=== PATIENT | female | born 1990 | race Caucasian/White ===

== ENCOUNTER 2018-01-28 12:05 | Emergency (ER) | payer OTHER, SELFPAY ==
[2018-01-28 12:10] VITALS: BP 144/99; PULSE 84; RESP 18; TEMP 36.8; O2SAT 100; BMI 21.9
[2018-01-28 12:47] LABS: Basophils % 0.2 % (0.1-2.0); Eosinophils % 0.3 % (0.1-12.0); Hematocrit 42.7 % (37.0-47.0); Hemoglobin 13.7 g/dL (12.2-16.2); Lymphocytes # 1.4 K/mm3 (0.7-4.5); Lymphocytes % 13.5 K/mm3 (10-50); Mean Corpuscular HGB Conc 32.1 g/dL (31.8-35.4); Mean Corpuscular Hemoglobin 27.6 pg (27.0-31.2); Mean Corpuscular Volume 85.9 fl (81-99); Mean Platelet Volume 9.1 fl (7.4-10.4); Monocytes # 0.3 K/mm3 (0.1-1.0); Neutrophils # 8.3 K/mm3 (1.8-7.8); Platelet Count 225 K/mm3 (142-424); Red Blood Count 4.97 M/mm3 (4.20-5.40); Red Cell Distribution Width 15.6 % (11.5-17.5)
[2018-01-28 12:49] LABS: Anion Gap 12.9 mEq/L (5-15); Blood Urea Nitrogen 13 mg/dL (7-18); Carbon Dioxide 28 mmol/L (21.0-32.0); Chloride 105 mmol/L (98-107); Creatinine Clearance Estimated 97 mL/min (0-300); Creatinine,Serum 0.86 mg/dL (0.55-1.02); Estimated Glomerular Filt Rate 78 ml/min (>60); GFR (African American) 94 ML/MIN (>60); Glucose 100 mg/dL (74-106); Potassium 3.9 mmoL/L (3.5-5.1); Sodium 142 mmol/L (136-145)
--- NOTE | 2018-01-28 13:18 | HMH.EDGENADL ---
ED Disposition Clinical Impression: Right ureteral calculus Disposition: Home, Self-Care Condition on Discharge: Good Instructions: DI for Kidney Stones Additional Instructions: Go to Dr. Patel office right now at the other end of the hospital, above clinic pharmacy. Prescriptions: Ketorolac Tromethamine [Toradol 10mg tablet] 10 mg PO Q8HP PRN 5 Days #12 tab PRN Reason: Moderate To Severe Pain Ondansetron [Zofran 4mg ODT] 4 mg PO TIDP PRN #10 tab.rapdis PRN Reason: Nausea And Vomiting - Critical Care Critical Care Time: No Attestation: On 01/28/18, the high probability of a clinically significant, sudden or life threatening deterioration of the following system(s) required my full and direct attention, intervention and personal management. The time I documented below is in addition to time spent performing reported procedures but includes the following listed in this critical care notation. Medical Decision Making - Leo Inquiry Pt receiving controlled substance: No Vital Signs: 01/28/18 12:10 01/28/18 13:49 Temperature 98.3 F 98.6 F Temperature Source Oral Oral Pulse Rate 77 Pulse Rate [Right Radial] 84 Respiratory Rate 18 16 Blood Pressure 145/90 Blood Pressure [Right Arm] 144/99 Blood Pressure Mean [Right Arm] 114 Blood Pressure Source Automatic Cuff Blood Pressure Source [Right Arm] Automatic Cuff Blood Pressure Position Sitting Blood Pressure Position [Right Arm] Supine 02 Sat by Pulse Oximetry 100 Oxygen Delivery Method Room Air Room Air - Lab Data Lab Results 01/28/18 12:30: WBC 10.0, RBC 4.97, Hgb 13.7, Hct 42.7, MCV 85.9, MCH 27.6, MCHC 32.1, RDW 15.6, Plt Count 225, MPV 9.1, Neut % (Auto) 83.0 H, Lymph % (Auto) 13.5, [place] % (Auto) 3.0, Eos % (Auto) 0.3, Baso % (Auto) 0.2, Neut # (Auto) 8.3 H, Lymph # (Auto) 1.4, [place] # (Auto) 0.3, Eos # (Auto) 0.0, Baso # (Auto) 0.0 01/28/18 12:30: Sodium 142, Potassium 3.9, Chloride 105, Carbon Dioxide 28, Anion Gap 12.9, BUN 13, Creatinine 0.86, Estimated Creat Clear 97, Estimated GFR 78, Est GFR ( Amer) 94, Glucose 100 01/28/18 13:20: Urine Color Yellow, Urine Appearance Clear, Urine pH 8.5, Ur Specific [place] 1.015, Urine Protein Negative, Urine Glucose (UA) Negative, Urine Ketones Negative, Urine Blood Trace-i, Urine Nitrate Negative, Urine Bilirubin Negative, Urine Urobilinogen 0.2, Ur Leukocyte Esterase Negative, Urine RBC Occasional, Urine WBC Occasional, Ur Squamous Epith Cells Tntc, Urine Bacteria 4+ Result diagrams: 01/28/18 12:30 01/28/18 12:30 Orders (Tests/Meds): ED MEDICATIONS Discontinued Medications Generic Name Dose Route Start Last Admin Trade Name Freq PRN Reason Stop Dose Admin Ketorolac Tromethamine 30 mg 01/28/18 13:25 Toradol 30mg/Ml Vial IV 01/28/18 13:26 ONCE ONE Ondansetron HCl 4 mg 01/28/18 13:28 01/28/18 13:37 Zofran 4mg/2ml Vial IV 01/28/18 13:29 4 mg ONCE ONE Administration ORDERS Category Date Time Status Urine Culture Stat Micro 01/28/18 13:20 Received Medical Decision Narrative: Records obtained from [facility] emergency department. The patient has a 4 mm right UVJ stone with moderate hydroureteronephrosis and a left nephrolithiasis. 1:45 PM: Discussed with Dr. Patel. He will see the patient in his office now and arrange surgical intervention. General Adult HPI - General Chief complaint: PAIN Stated complaint: kidney stone pain Time Seen by Provider: 01/28/18 13:19 Mode of Arrival: Wheelchair Limitations: No Limitations Description of Symptoms (Recalled from ER Triage Doc. by RN): Right flank pain - History of Present Illness HPI narrative: The patient is a 5 day history of right flank pain going into the right suprapubic area with vomiting. Seen at [facility] emergency department 4 days ago and had a CT scan, diagnosed with 4 mm right UVJ stone. She was given Toradol in the emergency room which she says helped we
[2018-01-28 13:24] LABS: Microscopic, Urine URINE MICROSCOPIC (MICROSCOPIC)
[2018-01-28 13:28] LABS: Appearance,Urine CLEAR (Clear); Bilirubin,Urine Negative (Negative); Blood, Urine TRACE-I (Negative); Color,Urine YELLOW (Yellow); Glucose,Urine (UA) Negative (Negative); Ketones,Urine Negative (Negative); Leukocyte Esterase,Urine Negative (Negative); Nitrate,Urine Negative (Negative); PH,Urine 8.5 (5.0-8.5); Protein,Urine Negative (Negative); Specific Gravity, Urine 1.015 (1.005-1.030); Urobilinogen,Urine 0.2 EU/dl (0.2)
[2018-01-28 13:48] LABS: Bacteria,Urine 4+ /lpf; RBC,Urine Occasional #/hpf (0-3); Squamous Epithelial Cell,Urine TNTC #/hpf (0-5); WBC,Urine Occasional #/hpf (0-3)
[2018-01-28 13:49] VITALS: BP 145/90; PULSE 77; RESP 16; TEMP 37; O2SAT 98
== END 2018-01-28 14:33 | disposition home or self-care (01) ==
PROVIDERS: Emergency Provider Emergency Medicine; Family Provider Internal Medicine
DX: N20.1 Calculus of ureter (principal); F17.210 Nicotine dependence, cigarettes, uncomplicated
CPT/HCPCS: 80048; 81001; 85025; 87086; 96374; 99281; J2405

== ENCOUNTER → 2018-01-28 15:35 | Day surgery (SDC) | payer OTHER, SELFPAY ==
[2018-01-28] VITALS (12 sets, daily range): BP systolic 114–126; BP diastolic 73–88; PULSE 79–105; RESP 12–23; TEMP 36.7–43; O2SAT 95–98; BMI 21.9
--- NOTE | 2018-01-28 16:11 | HMH.ANESCL ---
[facility] Anesthesia Checklist - Structural Data Admitted From: Home Planned Operative Procedure/s: ureteroscopy Consent for Planned Operative Procedure(s) Verified: Yes Verified Documents: Surgical Consent - Airway Assessment C-Spine Mobility Assessed: Yes TMJ Mobility Assessed: Yes Dentition: Good Dentition - Neurological Assessment Level of Consciousness: Awake, Alert - Anesthesia Plan Anesthesia Risk discussed: Yes Anesthesia Plan: Verified ASA Class: II Anesthesia Type: General [facility] Anesthesia HX I have reviewed the patient's past medical history: Yes Medical History: Denies:: Cancer, Diabetes Mellitus Type 1, Diabetes Mellitus Type 2, MRSA Amputation: No Fractures: No
[2018-01-28 16:21] LABS: Urine Pregnancy, HCG Qual. Negative (Negative)
--- NOTE | 2018-01-28 17:34 | HMH.ANESI ---
[facility] Anesthesia Record Part I Intake, IV Amount: 800 Estimated blood loss (mL): 0 Urine output (mL): 0 Blood Pressure: 115/76 SaO2: 97 Pulse Rate: 88 Respiratory Rate: 12 Temperature: 98.1 F Patient is:: Awake, Stable Stable to PACU at:: 17:30
--- NOTE | 2018-01-28 17:35 | P.PN_ITS ---
[facility] Anesthesia Record Part II Discharge Time: 18:00 Destination: [facility] PACU nurse assessment reviewed?: Yes Patient Condition:: Good Anesthesia Complications:: None
--- NOTE | 2018-01-28 17:35 | HMH.ANESII ---
[facility] Anesthesia Record Part II Discharge Time: 18:00 [address]ination: [facility] PACU nurse assessment reviewed?: Yes Patient Condition:: Good Anesthesia Complications:: None
--- NOTE | 2018-01-28 18:47 | HMH.OPNOTE ---
Date of procedure: 01/28/18 Pre-op Diagnosis:: Right distal ureteral calculus Post-op Diagnosis:: Right distal ureteral calculus Procedure performed:: Cystoscopy with right distal ureteral balloon dilation right ureteroscopy and basket extraction of stone, right ureteral stent placement string attached Surgeon:: Gavino Patel MD RAIL PROJECT ENGINEER:: Lloyd Kinney Anesthesia: GETA Estimated blood loss (mL): 0 Clinical Note:: Patient with 5 days history right flank pain nausea and emesis secondary to 4 mm stone right ureterovesical junction. Patient was seen earlier this afternoon in the clinic. Due to severity of her symptoms she request resolution with ureteroscopic stone extraction Operative findings:: Right distal ureteral calculus moderate distal ureteral edema Operative note:: After satisfactory general anesthesia she was carefully placed in the dorsolithotomy position. Fluoroscopy revealed calcification in her right distal pelvis. The genital area was prepped and draped in standard fashion. The 22 Hungarian cystoscope sheath was introduced. The trans-mural ureter looked mildly edematous. 0.035 zip wire was advanced up the right ureter beyond the stone to the level of the kidney. The ureteral orifice looked amenable to primary ureteroscopy. The cystoscope was withdrawn and the wire secured to the drape. The semirigid ureteroscope was introduced. The ureterovesical junction however there was a narrowed area did not easily accommodate the scope and it was elected to dilate this. A 15 Hungarian 4 cm length balloon dilating system was passed over the wire and station in the transmural ureter. It was inflated to 12 mine with excellent dilation. The balloon was deflated and removed. Ureteroscope was then placed bladder and easily advanced up the stone where it was engaged in a 4 wire 0 tip nitinol basket and extracted without difficulty. Additional stones were noted. There is no ureteral perforation or significant trauma although moderate edema. The stent was placed over the wire and a 1.8 x 26 cm double-J ureteral stent was placed. There was a good coil in the kidney and coil in the bladder. String was left attached exiting the urethra. Xylocaine jelly was instilled in the urethra. String was secured to the pubic area with Tegaderm. She was awakened and extubated and transferred to the postop recovery room in stable condition Condition: stable Disposition: PACU Specimens:: Stone Complications:: None. She is placed on Bactrim double strength twice daily for 10 days. She will remove her stent in 72 hours and she will follow-up with me in 3 weeks
[2018-02-07 16:23] LABS: Ca oxalate dihydrate 45 % (.); Calcium phosphate 30 % (.); Size 4x3x2 mm (.)
[2018-02-08 18:36] LABS: Specimen Type Comment: (.)
== END ==
PROVIDERS: Family Provider Internal Medicine; Visit Provider Urology
PROC: (CPT 52352; principal; 2018-01-28 16:00)
DX: N20.1 Calculus of ureter (principal)
CPT/HCPCS: 52344; 52352; 52332; 74450; 76000; 81025; 82370; 96374; C1769; C2617; J2405; Q9967

== ENCOUNTER 2021-04-18 16:00 | Outpatient (RCR) | payer MEDICAID, SELFPAY | END 2021-05-17 15:30 | disposition home or self-care (01) | LOC: PT.CARL 16:00 | PROVIDERS: Visit Provider Nurse Practitioner Family | DX: M54.5 Low back pain (principal) | CPT/HCPCS: 97014; 97110; 97140; 97163; G0283 ==

== ENCOUNTER 2022-12-13 08:09 | Emergency (ER) | payer MEDICAID, SELFPAY ==
[2022-12-13 08:15] VITALS: BP 144/98; PULSE 86; RESP 20; TEMP 36.8; O2SAT 97; BMI 25.0
--- NOTE | 2022-12-13 08:19 | CT_ITS ---
FINAL REPORT TECHNIQUE: Axial CT images of the abdomen and pelvis were obtained without intravenous contrast. Coronal reformatted images were also obtained.This study was performed with techniques to keep radiation doses as low as reasonably achievable (ALARA). Individualized dose reduction techniques using automated exposure control or adjustment of mA and/or kV according to the patient's size were employed. CLINICAL HISTORY: r/o kidney stone. L flank pain COMPARISON: None FINDINGS: Abdomen: The lung bases are clear. There are several less than 3 mm nonobstructing bilateral renal stones. There is no right hydronephrosis or hydroureter. There is mild left hydronephrosis and hydroureter. Gallbladder is present. The liver, spleen and pancreas have an unremarkable, unenhanced appearance. No mass or adenopathy is seen. No inflammatory process is identified. Pelvis: The appendix is normal. There are multiple phleboliths noted in the pelvis. Of the distal left ureter is suboptimally visualized. There is a probable 5 mm stone in the distal left ureter near the UPJ. The uterus has a mildly lobulated contour which may represent uterine fibroid. IMPRESSION: Small nonobstructing renal stones. Mild left hydronephrosis and hydroureter with probable 5 mm left UPJ stone. Reviewed, Interpreted and Dictated by Troy Lake III, MD Transcribed by Jayne Vora Authenticated and [facility]
--- NOTE | 2022-12-13 08:20 | PC.NURSE ---
DR. OSEGUERA AT BEDSIDE
--- NOTE | 2022-12-13 08:21 | HMH.EDGENADL ---
Discharge Plan Disposition Patient Disposition: Home, Self-Care Condition: Good Prescriptions Prescriptions: New tamsulosin [Flomax] 0.4 mg capsule 0.4 mg PO HS Qty: 10 0RF ketorolac 10 mg tablet 10 mg PO Q8H PRN (Reason: pain) Qty: 10 0RF ondansetron 4 mg tablet,disintegrating 4 mg PO Q8H PRN (Reason: nausea and vomiting) Qty: 10 0RF Referrals Follow up/Referrals: Provider,Referral, MD [Primary Care Provider] - See instructions Activity Restrictions/Add. Instructions Additional Instructions/Restrictions: Flomax as prescribed. Toradol as needed for pain. Zofran as needed for nausea. Additional instructions for KIDNEY STONE (URETERAL CALCULUS): Call a urologist as soon as possible for further evaluation and care. Drink plenty of fluids. Strain your urine and save any stones you catch. Return immediately if you develop a fever or have uncontrollable vomiting or uncontrollable pain. Follow up with a urologist, call for appointment: [facility] (Dr. Ackerman) [address] [place] [address] Jonh Morley [facility] [address] [id number] Clinical Impressions Clinical Impression: Left ureteral calculus, Nephrolithiasis Instructions Patient Instructions: DI for Kidney Stones Discharge ED Provider: Kit Mathis General Adult HPI General Chief complaint: Urogenital-Female Stated complaint: Possible kidney stone vomitting lower back pain Time Seen by Provider: 12/13/22 08:16 Mode of Arrival: Ambulatory Source of Information: Patient Limitations: No Limitations Description of Symptoms (Recalled from ER Triage Doc. by RN): pt to ed c/o left flank pain, n/v and urinary urgency that started last night. pt reports a hx of kidney stones. pt reports the pain is sharp in nature and is constant. History of Present Illness HPI narrative: States she believes she has a kidney stone. Onset of left flank pain with vomiting and urinary frequency this morning. Small amounts of hematuria. No fever. Pain goes into her left lower quadrant. Reports that she has had multiple kidney stones in the past, last episode 2 years ago. Previously has seen Dr. Ackerman. She has had to have cystoscopy for stone in the past. She has never had lithotripsy. Related Data Previous Rx's Medication Instructions Recorded ketorolac 10 mg tablet 10 mg PO Q8H PRN pain #10 tabs 12/13/22 ondansetron 4 mg disintegrating 4 mg PO Q8H PRN nausea and 12/13/22 tablet vomiting #10 tabs tamsulosin 0.4 mg capsule (Flomax) 0.4 mg PO HS #10 caps 12/13/22 Allergies Allergy/AdvReac Type Severity Reaction Status Date / Time No Known Allergies Allergy Verified 12/13/22 08:18 [facility] Disclaimer: The information contained in this section may have been updated after the patient was seen, as this information can be updated by other users. Social History Smoking Status: Current every day smoker ROS Obtained: Yes Systems reviewed as appropriate & no additional complaints except as documented Constitutional Constitutional: Denies fever(s), Denies headache(s) and Denies weakness ENT Ears, Nose, Mouth, and Throat: Denies headache(s), Denies nasal discharge and Denies sore throat Cardiovascular Cardiovascular: Denies chest pain Respiratory Respiratory: Denies shortness of breath and Denies cough Gastrointestinal Gastrointestingal: Reports abdominal pain, nausea and vomiting; Denies constipation or diarrhea Genitourinary Female Genitourinary: Denies difficulty voiding, Denies dysuria, Reports flank pain, Reports hematuria, Reports urinary frequency and Reports urinary urgency Musculoskeletal Musculoskeletal: Denies numbness Neurologic Neurologic: Denies headache(s), Denies numbness and Denies weakness Physical Exam General General appearance: alert and in no apparent distress Head Head exam: atraumatic a
[2022-12-13 08:25] LABS: Microscopic, Urine URINE MICROSCOPIC (MICROSCOPIC)
[2022-12-13 08:33] VITALS: PULSE 87; O2SAT 99
[2022-12-13 08:43] LABS: Alanine Aminotransferase 17 U/L (12-78); Albumin Level 4.7 g/dl (3.5-5.0); Albumin/Globulin Ratio 1.6 (1.1-1.8); Alkaline Phosphatase 79 U/L (38-126); Anion Gap 10.5 mEq/L (5-15); Aspartate Amino Transferase 24 U/L (14-36); Bilirubin,Total 0.2 mg/dl (0.2-1.3); Blood Urea Nitrogen 11 mg/dl (7-17); Calcium 9.1 mg/dl (8.4-10.2); Carbon Dioxide 27 mmol/L (22.0-30.0); Chloride 108 mmol/L (98-107); Creatinine Clearance Estimated 130 mL/min (50-200); Estimated Glomerular Filt Rate 96 ml/min (>60); GFR (African American) 116 ML/MIN (>60); Globulin 2.9 g/dL (1.3-3.2); Glucose 137 mg/dl (74-100); Potassium 4.5 mmoL/L (3.5-5.1); Sodium 141 mmol/L (136-145); Total Protein,Serum 7.6 g/dl (6.3-8.2); Urine Pregnancy, HCG Qual. Negative (Negative)
[2022-12-13 08:43] LABS: Lipase 59 U/L (23-300)
--- NOTE | 2022-12-13 08:49 | PC.NURSE ---
pt to ct at this time
[2022-12-13 08:53] LABS: Appearance,Urine CLEAR (Clear); Basophils # 0.1 K/mm3 (0-0.2); Basophils % 1.3 % (0.1-2.0); Blood, Urine 3+ (Negative); Color,Urine YELLOW (Yellow); Eosinophils # 0.2 K/mm3 (0.0-0.4); Eosinophils % 1.9 % (0.1-12.0); Glucose,Urine (UA) Negative (Negative); Hematocrit 44.8 % (37.0-47.0); Hemoglobin 14.7 g/dL (12.2-16.2); Ketones,Urine Negative (Negative); Leukocyte Esterase,Urine TRACE (Negative); Lymphocytes # 1.6 K/mm3 (0.7-4.5); Lymphocytes % 15.5 % (10-50); Mean Corpuscular HGB Conc 32.7 g/dL (31.8-35.4); Mean Corpuscular Hemoglobin 29.4 pg (27.0-31.2); Mean Corpuscular Volume 89.9 fl (81-99); Mean Platelet Volume 9.3 fl (7.4-10.4); Monocytes # 0.4 K/mm3 (0.1-1.0); Monocytes % 3.6 % (1.7-9.3); Neutrophils % 77.7 % (37.0-80.0); Nitrate,Urine Negative (Negative); PH,Urine 6.5 (5.0-8.5); Platelet Count 234 K/mm3 (142-424); Protein,Urine 1+ (Negative); Red Blood Count 4.98 M/mm3 (4.20-5.40); Red Cell Distribution Width 14.3 % (11.5-17.5); Specific Gravity, Urine 1.025 (1.005-1.030); Urobilinogen,Urine 0.2 EU/dl (0.2); White Blood Count 10.3 K/mm3 (4.8-10.8)
[2022-12-13 08:54] LABS: Bilirubin,Urine 1+ (Negative)
[2022-12-13 09:01] VITALS: BP 120/93; PULSE 94; O2SAT 98
--- NOTE | 2022-12-13 09:25 | PC.NURSE ---
DR OSEGUERA AT BEDSIDE TO UPDATE PT
[2022-12-13 10:00] VITALS: BP 106/75; PULSE 85; O2SAT 97
--- NOTE | 2022-12-13 10:15 | PC.NURSE ---
preliminary report given to
[2022-12-13 12:19] VITALS: BP 115/74; PULSE 82; RESP 20; TEMP 36.8; O2SAT 97
== END 2022-12-13 11:17 | disposition home or self-care (01) ==
PROVIDERS: Emergency Provider Emergency Medicine
DX: N20.2 Calculus of kidney with calculus of ureter (principal); F17.210 Nicotine dependence, cigarettes, uncomplicated
CPT/HCPCS: 74176; 80053; 81001; 81025; 83690; 85025; 96361; 96374; 96375; 99285; J2405

== ENCOUNTER 2024-05-18 15:10 | Outpatient (CLI) | payer MEDICAID, SELFPAY ==
[2024-05-18 15:48] LABS: Basophils % 0.4 % (0.1-2.0); Eosinophils # 0.1 K/mm3 (0.0-0.4); Eosinophils % 0.8 % (0.1-12.0); Hematocrit 38.9 % (37.0-47.0); Lymphocytes # 1.9 K/mm3 (0.7-4.5); Lymphocytes % 21.1 % (10-50); Mean Corpuscular HGB Conc 33.5 g/dL (31.8-35.4); Mean Corpuscular Hemoglobin 29.8 pg (27.0-31.2); Mean Corpuscular Volume 89.1 fl (81-99); Mean Platelet Volume 8.6 fl (7.4-10.4); Monocytes # 0.4 K/mm3 (0.1-1.0); Monocytes % 4.2 % (1.7-9.3); Neutrophils # 6.8 K/mm3 (1.8-7.8); Neutrophils % 73.5 % (37.0-80.0); Platelet Count 230 K/mm3 (142-424); Red Blood Count 4.37 M/mm3 (4.20-5.40); Red Cell Distribution Width 14.9 % (11.5-17.5); White Blood Count 9.2 K/mm3 (4.8-10.8)
[2024-05-19 11:01] LABS: HIV (1&2) Antibody Rapid NON REACTIVE
[2024-05-20 06:13] LABS: HCV Ab Non Reactive (Non Reactive); Hepatitis B Surface Antigen Negative (Negative)
[2024-05-20 08:21] LABS: Rubella Antibodies, IgG 2.14 index (Immune >0.99)
[2024-05-20 13:33] LABS: Rapid Plasma Reagin Ab Titer Non Reactive titer (NonRea<1:1)
== END 2024-05-18 23:59 | disposition home or self-care (01) ==
LOC: LAB 15:10
PROVIDERS: PCP Nurse Practitioner Family; Visit Provider Nurse Practitioner Obstetrics & Gynecology
DX: Z34.90 Encounter for supervision of normal pregnancy, unspecified, unspecified trimester (principal)
CPT/HCPCS: 86803; 86703; 36415; 85025; 86593; 86762; 86850; 87086; 87340

== ENCOUNTER 2024-05-22 13:53 | Outpatient (CLI) | payer MEDICAID, SELFPAY ==
--- NOTE | 2024-05-22 13:53 | US_ITS ---
PROCEDURE: US OB <= 14 WEEKS FETUS CLINICAL INDICATION: confirm viability and dates COMPARISON: No exams were available for comparison FINDINGS: Transvaginal sonographic images of the pelvis were obtained. From her last menstrual period she is 12weeks 4days. An intrauterine gestational sac is present with a pole with a crown-rump length of 2.7cm This correlates to a gestational age of 9weeks 4days. heart tones are present with an FHR of 195bpm. Yolk sac is noted. The yolk sac measures 5.8mm. The right ovary is seen and appears normal. There is a corpus luteum in the right ovary measuring 2.2 cm. The left ovary is seen and appears normal. There is no fluid in the cul-de-sac. IMPRESSION: 1. Viable fetus within the uterine cavity measuring 9 weeks 4 days. 2. The dates are different from her last menstrual period. Her revised TARUN will be 12/21/2024. 3. Both ovaries are seen and appear normal. There is a corpus luteum on the right ovary. 4. No fluid in the cul-de-sac Dictated by: Anthony Aguilar MD 05/23/2024 07:12 Anthony Aguilar MD in [place] 05/23/2024 07:12
== END 2024-05-22 23:59 | disposition home or self-care (01) ==
LOC: RAD 13:53
PROVIDERS: PCP Nurse Practitioner Family; Visit Provider Nurse Practitioner Obstetrics & Gynecology
DX: Z34.91 Encounter for supervision of normal pregnancy, unspecified, first trimester (principal); Z3A.12 12 weeks gestation of pregnancy
CPT/HCPCS: 76801

== ENCOUNTER 2024-08-03 14:29 | Outpatient (CLI) | payer MEDICAID, SELFPAY ==
--- NOTE | 2024-08-03 14:30 | US_ITS ---
PROCEDURE: US OB /MATERNAL DETAIL CLINICAL INDICATION: anatomy scan COMPARISON: US US OB <= 14 WEEKS FETUS from 05/22/2024 FINDINGS: Transabdominal sonographic images of the pelvis were obtained. From her established due date she is 20 weeks 0 days. Single viable intrauterine gestation. Breech position. Placenta: Anteriorplacenta grade 1. There is an average amount of fluid. The cervix appears satisfactory. Closed and measuring 5.3 cm in length. Complete survey performed and was unremarkable on the submitted images as in PACS. No discrete anomalies identified on survey imaging by technologist. Active fetus. Three-vessel cord with satisfactory umbilical cord insertion. 4- chamber heart noted. Situs, aortic arch, LVOT, RVOT, three-vessel view appear normal. Survey of brain & ventricles Unremarkable. Cerebellum, thalamus, choroid plexus, cisterna magna appear normal. Face and neck survey unremarkable. Profile, nasion, lips and nose appeared normal. Diaphragm and chest views unremarkable. Abdomen: Both kidneys noted. There is mild unilateral renal pelvis dilation measuring 5.4 mm. Stomach and bladder noted and satisfactory. Spine: Survey of the spine satisfactory with no anomalies identified nor imaged. Cervical, thoracic, lower spine appear normal. Both arms and legs noted. Amniotic Fluid: Adequate. MVP 4.32 cm Measurements: Average ultrasound age 20 weeks 4 days. Estimated due date by ultrasound age 0212/17/2024. Estimated weight 370 g BPD = 20 weeks 1 day HC = 20 weeks 5 days AC = 21 weeks 1 day FL = 20 weeks 2 days Growth Percentile= 83 Heart Rate = 155bpm Cerebellum = 19 weeks 5 days Humerus = 20 weeks 4 days HC/AC is 1.14 FL/BPD is 0.71 FL/AC is 0.2 IMPRESSION: 1. Viable fetus in the breech presentation that switched to cephalic by the end of the exam. 2. The placenta is anterior grade 1. 3. The fluid is within normal limits with an MVP 4.32 cm. 4. Anatomical scan appears normal. 5. There is 5.4 mm unilateral renal pelvis dilation and suggest repeat scan at 28 weeks. 6. cardiac exam was incomplete and difficult due to position. Suggest repeat heart examination in 2-3 weeks. 7. biometry is consistent with the dates. Dictated by: Anthony Aguilar MD 08/03/2024 15:59 Anthony Aguilar MD in [facility] 08/03/2024 15:59
== END 2024-08-03 23:59 | disposition home or self-care (01) ==
LOC: RAD 14:30
PROVIDERS: PCP Nurse Practitioner Family; Visit Provider Obstetrics & Gynecology
DX: Z36.89 Encounter for other specified antenatal screening (principal); Z3A.20 20 weeks gestation of pregnancy
CPT/HCPCS: 76811

== ENCOUNTER 2024-08-17 14:02 | Outpatient (CLI) | payer MEDICAID, SELFPAY ==
--- NOTE | 2024-08-17 14:02 | US_ITS ---
PROCEDURE: US OB FOLLOW UP CLINICAL INDICATION: heart exam and evaluation/ see previous u/s COMPARISON: US US OB <= 14 WEEKS FETUS from 05/22/2024 US US OB /MATERNAL DETAIL from 08/03/2024 FINDINGS: Transabdominal sonographic images of the pelvis were obtained. The following parameters are obtained: From her established due date she is 22weeks 0 days Viable fetus in the cephalic presentation with an anterior placenta grade 1. The cervix measures 3.4 cm heart rate: 150bpm bpm. Amniotic fluid: MVP 3.81 cm. No obvious anomalies evident. profile seen, stomach, bladder, three-vessel cord, four chamber heart appear normal. heart: Three-vessel view, RVOT, LVOT, four-chamber heart appears normal. IMPRESSION: 1. Viable fetus in the cephalic presentation with an anterior placenta grade 1. 2. The fluid is within normal limits MVP 3.81 cm. 3. cardiac anatomy appears normal today. 4. Limited anatomical scan appears to be normal. Dictated by: Anthony Aguilar MD 08/17/2024 17:02 Anthony Aguilar MD in [facility] 08/17/2024 17:02
== END 2024-08-17 23:59 | disposition home or self-care (01) ==
LOC: RAD 14:02
PROVIDERS: PCP Nurse Practitioner Family; Visit Provider Obstetrics & Gynecology
DX: O28.3 Abnormal ultrasonic finding on antenatal screening of mother (principal); Z3A.22 22 weeks gestation of pregnancy
CPT/HCPCS: 76816

== ENCOUNTER 2024-09-28 10:21 | Outpatient (CLI) | payer MEDICAID, SELFPAY ==
[2024-09-28 10:52] LABS: Basophils % 0.4 % (0.1-2.0); Eosinophils # 0.1 K/mm3 (0.0-0.4); Eosinophils % 0.8 % (0.1-12.0); Hematocrit 31.6 % (37.0-47.0); Lymphocytes # 1.5 K/mm3 (0.7-4.5); Lymphocytes % 16.7 % (10-50); Mean Corpuscular HGB Conc 34.9 g/dL (31.8-35.4); Mean Corpuscular Hemoglobin 29.5 pg (27.0-31.2); Mean Corpuscular Volume 84.4 fl (81-99); Mean Platelet Volume 8.4 fl (7.4-10.4); Monocytes # 0.4 K/mm3 (0.1-1.0); Monocytes % 4.6 % (1.7-9.3); Neutrophils # 6.8 K/mm3 (1.8-7.8); Neutrophils % 77.5 % (37.0-80.0); Platelet Count 252 K/mm3 (142-424); Red Blood Count 3.75 M/mm3 (4.20-5.40); Red Cell Distribution Width 15.1 % (11.5-17.5); White Blood Count 8.8 K/mm3 (4.8-10.8)
[2024-09-28] MEDS: RHO(D) IMMUNE GLOBULIN 1,500 UNIT (300MCG) SYRINGE 300 MCG IM (12:16)
[2024-09-28 12:21] VITALS: BP 144/91; PULSE 100; RESP 18; O2SAT 100
[2024-09-29 13:15] LABS: Rapid Plasma Reagin Ab Titer Non Reactive titer (NonRea<1:1)
== END 2024-09-28 12:21 | disposition home or self-care (01) ==
LOC: INF 10:22
PROVIDERS: PCP Nurse Practitioner Family; Visit Provider Obstetrics & Gynecology
DX: Z34.90 Encounter for supervision of normal pregnancy, unspecified, unspecified trimester (principal)
CPT/HCPCS: 36415; 85025; 86593; 96372; J2790

== ENCOUNTER 2024-10-23 11:02 | Outpatient (CLI) | payer MEDICAID, SELFPAY ==
[2024-10-23] MEDS: LACTATED RINGERS 1000ML 1,000 ML 999 ML IV (11:35)
[2024-10-23 11:59] LABS: Basophils % 0.2 % (0.1-2.0); Eosinophils # 0.1 K/mm3 (0.0-0.4); Eosinophils % 0.8 % (0.1-12.0); Hematocrit 33.1 % (37.0-47.0); Hemoglobin 11.4 g/dL (12.2-16.2); Lymphocytes # 1.6 K/mm3 (0.7-4.5); Mean Corpuscular HGB Conc 34.4 g/dL (31.8-35.4); Mean Corpuscular Hemoglobin 28.4 pg (27.0-31.2); Mean Corpuscular Volume 82.7 fl (81-99); Mean Platelet Volume 8.5 fl (7.4-10.4); Monocytes # 0.4 K/mm3 (0.1-1.0); Monocytes % 4.2 % (1.7-9.3); Neutrophils # 7.2 K/mm3 (1.8-7.8); Neutrophils % 77.7 % (37.0-80.0); Platelet Count 301 K/mm3 (142-424); Red Cell Distribution Width 15.6 % (11.5-17.5); White Blood Count 9.2 K/mm3 (4.8-10.8)
[2024-10-23 12:00] VITALS: BP 144/92; PULSE 110; RESP 18; TEMP 36.7; O2SAT 100; BMI 32.4
[2024-10-23 12:15] VITALS: BP 135/94
[2024-10-23 12:16] LABS: Alanine Aminotransferase 14 U/L (12-78); Albumin Level 3.8 g/dl (3.5-5.0); Albumin/Globulin Ratio 1.2 (1.1-1.8); Alkaline Phosphatase 98 U/L (38-126); Anion Gap 12.5 mEq/L (5-15); Aspartate Amino Transferase 22 U/L (14-36); Bilirubin,Total 0.4 mg/dl (0.2-1.3); Blood Urea Nitrogen 6 mg/dl (7-17); Calcium 9.4 mg/dl (8.4-10.2); Carbon Dioxide 22 mmol/L (22.0-30.0); Chloride 107 mmol/L (98-107); Estimated Glomerular Filt Rate 113 ml/min (>60); GFR (African American) 137 ML/MIN (>60); Globulin 3.1 g/dL (1.3-3.2); Glucose 90 mg/dl (74-100); Potassium 3.5 mmoL/L (3.5-5.1); Sodium 138 mmol/L (136-145); Total Protein,Serum 6.9 g/dl (6.3-8.2); Uric Acid 3.6 mg/dl (2.5-6.2)
[2024-10-23 12:20] LABS: Activated Partial Thrombo Time 26.1 seconds (22.8-30.6); Fibrinogen 627 mg/dL (229.9-363.5); INR 0.97 (0.9-1.1); Prothrombin Time 10.9 seconds (10.1-12.5)
[2024-10-23 12:21] LABS: Creatinine,Urine Random 168 mg/dL (Not Estab.)
[2024-10-23 12:24] VITALS: BMI 32.4
[2024-10-23 12:30] VITALS: BP 145/95; PULSE 110
[2024-10-23] MEDS: LABETALOL 100MG TABLET 100 MG PO (12:46)
[2024-10-23 13:15] VITALS: BP 134/84
== END 2024-10-23 13:31 | disposition home or self-care (01) ==
LOC: OBOUT 11:04 → OB 11:05
PROVIDERS: PCP Nurse Practitioner Family; Visit Provider Obstetrics & Gynecology
DX: O60.03 Preterm labor without delivery, third trimester (principal); Z3A.31 31 weeks gestation of pregnancy
CPT/HCPCS: 80053; 82570; 84156; 84550; 85025; 85384; 85610; 85730; G0463; J7120